=== PATIENT | female | born 1950 | race Caucasian/White ===

== ENCOUNTER 2016-06-05 14:01 | Outpatient (CLI) ==
[2016-06-05 15:19] VITALS: BMI 26.1
== END 2016-06-05 14:02 | disposition home or self-care (01) ==
LOC: DIETCN 14:01
PROVIDERS: ATTEND Family Medicine
DX: E11.9 Type 2 diabetes mellitus without complications (principal)
CPT/HCPCS: 97802

== ENCOUNTER 2017-01-06 14:55 | Emergency (ER) ==
[2017-01-06 15:21] VITALS: TEMP 97.5; BMI 25.7
[2017-01-06 15:47] LABS: BASOPHILS # (AUTO) 0.1 K/uL (0-0.2); BASOPHILS % (AUTO) 0.7 % (0.0-3.0); HEMATOCRIT 40.1 % (37.0-47.0); HEMOGLOBIN 14.3 g/dl (12.0-16.0); IMMATURE GRANULOCYTE % (AUTO) 0.5 % (0.0-5.0); LYMPHOCYTES # (AUTO) 1.9 K/uL (0.60-3.4); LYMPHOCYTES % (AUTO) 21.3 (10.0-50.0); MEAN CORPUSCULAR HEMOGLOBIN 31.1 pg (27.0-31.0); MEAN CORPUSCULAR HGB CONC 35.7 (31.8-35.4); MEAN CORPUSCULAR VOLUME 87.2 fl (81.0-99.0); MONOCYTES # (AUTO) 0.6 K/uL (0.4-2.0); MONOCYTES % (AUTO) 6.6 (0-10); NEUTROPHILS # (AUTO) 6.2 K/ul (2.0-6.9); NEUTROPHILS % (AUTO) 70.9; PLATELET COUNT 198 10^3/uL (140-440); WHITE BLOOD COUNT 8.68 K/ul (4.6-10.2)
--- NOTE | 2017-01-06 15:59 | CT ---
Exam: CT brain without contrast Clinical indication: Dizziness. Comparison: None available. TECHNIQUE: Axial unenhanced CT images from the skull base through the brain were obtained. Coronal and sagital reformats were performed. Findings: There is no evidence of intra or extra-axial hemorrhage. 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 There is also encephalomalacia from a small old left frontal infarct.There is no evidence of mass, acute infarct or midline shift. The ventricles and basilar cisterns are within normal limits. The visualized paranasal sinuses and mastoid air cells are clear. The visualized bony structures are unremarkable. Impression: 1. No acute intracranial abnormality. 2. 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 3. Old left frontal infarct.
[2017-01-06 16:14] LABS: ALANINE AMINOTRANSFERASE 14 U/L (12-78); ALBUMIN 4.2 g/dL (3.4-5.0); ALBUMIN/GLOBULIN RATIO 1.35; ALKALINE PHOSPHATASE 127 U/L (53-141); ANION GAP 18.2; ASPARTATE AMINO TRANSFERASE 9 U/L (15-37); BILIRUBIN,TOTAL 0.37 mg/dL (0.00-1.20); BLOOD UREA NITROGEN 21 mg/dL (7-18); BUN/CREATININE RATIO 15.55; CALCIUM 9.8 mg/dL (8.2-10.2); CARBON DIOXIDE 24 mmol/L (23-31); CHLORIDE 101 mmol/L (98-107); CREATINE KINASE 99 U/L; CREATININE 1.35 mg/dL (0.60-1.30); GLUCOSE 290 mg/dL (82-115); POTASSIUM 4.2 mmol/L (3.5-5.10); SODIUM 139 mmol/L (136-145); TOTAL PROTEIN 7.3 g/dL (5.8-8.1)
--- NOTE | 2017-01-06 16:29 | ED.PDOC ---
General ED Provider: Dr. JOSIAH KAT Chief Complaint: Dizziness Stated Complaint: DIZZINESS Time Seen by Physician: 15:00 (ON ARRIVAL NOT DIZZY) Mode of Arrival: Walk-In Information Source: Patient Exam Limitations: No limitations Primary Care Provider: CRISTIANE FERNANDEZ Nursing and Triage Documentation Reviewed and Agree: Yes Neurological Complaint Exam - Dizziness Complaint/Exam Onset: Gradual Duration: 1` MIN Symptoms Are: Resolved Episodes Lasting: Seconds Initial Severity: Mild Current Severity: None Character: Reports: Dizzy Aggravating: Reports: None Alleviating: Reports: None Associated Signs and Symptoms: Denies: Nausea, Vomiting, Diaphoresis, Tinnitus, Chest pain, Short of air, Palpitations, Unsteady gait, GI blood loss, Visual changes, Decreased oral intake, Change in medication, Change in diet, OTC meds, Loss of balance Cardiac Risk Factors: Reports: Hypertension, Elevated lipids CVA Risk Factors: Reports: Hypertension Related Surgical History: Reports: None JVD Present: No Carotid Bruit Present: No Rectal Heme Positive: No Glascow Coma Scale (see protocol): 15 Nystagmus Present: No Gag Reflex Present: No Meningeal Signs Positive: No Focal Weakness: Present: None Focal Sensory Loss: Present: None Gait: Normal Babinski Sign: Negative Right, Negative Left Differential Diagnoses: Dysrhythmia, Hyperventilation, Hypovolemia, Metabolic abnormalities, Vasovagal reaction Review of Systems - Review Of Systems Constitutional: Reports: No symptoms Eyes: Reports: No symptoms Ears, Nose, Mouth, Throat: Reports: No symptoms Respiratory: Reports: No symptoms Cardiac: Reports: No symptoms GI: Reports: No symptoms : Reports: No symptoms Musculoskeletal: Reports: No symptoms Skin: Reports: No symptoms Neurological: Reports: No symptoms Endocrine: Reports: No symptoms Hematologic/Lymphatic: Reports: No symptoms All Other Systems: Reviewed and Negative Past Medical History - Past Medical History Previously Healthy: Yes Endocrine: Reports: Hypothyroid, Dyslipidemia Cardiovascular: Reports: Hypertension Respiratory: Reports: None Hematological: Reports: None Gastrointestinal: Reports: None Genitourinary: Reports: None Neuro/Psych: Reports: None Musculoskeletal: Reports: None Cancer: Reports: None Last Menstrual Period: unknown - Surgical History General Surgical History: Reports: None - Family History Family History: Reports: None - Social History Smoking Status: Current every day smoker, Heavy tobacco smoker Hx Substance Use: No Alcohol Screening: Occasionally Physical Exam - Physical Exam Appearance: Well-appearing, No pain distress, Well-nourished Eyes: MILADY, EOMI, Conjunctiva clear ENT: Ears normal, Nose normal, Oropharynx normal Respiratory: Airway patent, Breath sounds clear, Breath sounds equal, Respirations nonlabored Cardiovascular: RRR, Pulses normal, No rub, No murmur GI/: Soft, Nontender, No masses, Bowel sounds normal, No Organomegaly Musculoskeletal: Normal strength, ROM intact, No edema, No calf tenderness Skin: Warm, Dry, Normal color Neurological: Sensation intact, Motor intact, Reflexes intact, Cranial nerves intact, Alert, Oriented Psychiatric: Affect appropriate, Mood appropriate Interpretation - Radiology Interpretation Radiology Interpretation By: Radiologist Radiology Results: No acute changes Exam Interpreted: CT Scan Critical Care Note - Critical Care Note Total Time (mins): 0 Course - Course Hematology/Chemistry: 01/06/17 15:40 01/06/17 15:40 Orders, Labs, Meds: Lab Review 01/06/17 15:40 WBC 8.68 RBC 4.60 Hgb 14.3 Hct 40.1 MCV 87.2 MCH 31.1 H MCHC 35.7 H RDW Coeff of Barbie 12.9 Plt Count 198 Immature Gran % (Auto) 0.5 Neut % (Auto) 70.9 Lymph % (Auto) 21.3 [place] % (Auto) 6.6 Eos % (Auto) 0.0 Baso % (Auto) 0.7 Immature Gran # (Auto) 0.0 Neut # 6.2 Lymph # 1.9 [place] # 0.6 Eos # 0.0 Baso # 0.1 Sodium 139 Potassium 4.2 Chloride 101 Carbon Dioxide 24 Anion Gap 18.2 BUN 21 H Creatinine 1.35 H Estimated GFR (MDRD) 39.00 BUN/Creatinine Ratio 15.55 Glucose 290 H Calcium 9.8 Total Bilirubin 0.37 AST 9 L ALT 14 Alkaline Phosphatase 127 Total Creatine Kinase 99 Troponin I < 0.0100 Total Protein 7.3 Albumin 4.2 Globulin 3.1 Albumin/Globulin Ratio 1.35 Orders Category Date Time Status EKG-(ED ONLY) Stat CARDIO 01/06/17 15:28 Completed CBC W/ AUTO DIFF Stat LAB 01/06/17 15:40 Completed COMPREHENSIVE METABOLIC PANEL Stat LAB 01/06/17 15:40 Completed CREATINE KINASE Stat LAB 01/06/17 15:40 Completed TROPONIN I Stat LAB 01/06/17 15:[address] HEAD W/O CONTRAST Stat RADS 01/06/17 15:28 Completed Vital Signs: Temp Pulse Resp BP Pulse Ox 01/06/17 14:56 97.5 F L 75 20 198/75 H 75 L Departure - Departure Time of Disposition: 16:29 (NO LONGER DIZZY IN ED) Disposition: HOME SELF-CARE Discharge Problem: Dizziness Instructions: Vertigo (ED), Dizziness (ED) Condition: Good Pt referred to PMD for follow-up: Yes Additional Instructions: Please call your Family Physician as soon as possible to schedule a follow-up appointment. Allergies/Adverse Reactions: Allergies codeine Adverse Reaction (Verified 01/06/17 15:07) Sulfa (Sulfonamide Antibiotics) Adverse Reaction (Verified 01/06/17 15:07) Home Medications: Ambulatory Orders Albuterol Sulfate [Ventolin Hfa] 2 puff IH Q4-6H PRN 01/06/17 Amlodipine Besylate/Benazepril [Amlodipine-Benazepril 10-20 mg] 1 each PO DAILY 01/06/17 Atorvastatin Calcium [Lipitor] 40 mg PO DAILY 01/06/17 Clopidogrel Bisulfate [Clopidogrel] 75 mg PO DAILY 01/06/17 Glipizide [Glucotrol] 10 mg PO BID 01/06/17 Levothyroxine Sodium [Synthroid] 125 mcg PO DAILY 01/06/17 Losartan/Hydrochlorothiazide [Hyzaar 100-12.5 Tablet] 50 mg PO DAILY 01/06/17 Metformin HCl [Metformin HCl ER] 1,000 mg PO BID 01/06/17 Sitagliptin Phosphate [Januvia] 25 mg PO DAILY 01/06/17 Venlafaxine HCl [Effexor Xr] 150 mg PO DAILY 01/06/17
[2017-01-06 16:34] VITALS: BP 174/92
== END 2017-01-06 16:38 | disposition home or self-care (01) ==
LOC: ED 14:55
DX: R42 Dizziness and giddiness (principal); I10 Essential (primary) hypertension; E78.5 Hyperlipidemia, unspecified; E03.9 Hypothyroidism, unspecified; F17.210 Nicotine dependence, cigarettes, uncomplicated; Z79.899 Other long term (current) drug therapy
CPT/HCPCS: 36415; 80053; 82550; 84484; 85025; 93005; 93010; 99283

== ENCOUNTER 2022-08-06 14:01 | Inpatient (IN) ==
--- NOTE | 2022-08-06 14:04 | ED.PDOC ---
General ED Provider: Dr. VIKY DIAZ MD Chief Complaint: Weakness Stated Complaint: Patient has had watery diarrhea for one week. She has been on flagyl without improvement. Denies fever, chills, nausea, emesis, abdominal pain, hematochezia or urinary tract symptoms. She has also taken immodium with mild improvement of the diarrhea. Time Seen by Provider: 08/06/22 14:03 Primary Care Provider: CRISTIANE FERNANDEZ Nursing and Triage Documentation Reviewed and Agree: Yes Does patient meet sepsis criteria?: No System Inflammatory Response Syndrome: Not Applicable Sepsis Protocol: For patient's 13 years and over: Temp is 96.8 and below OR 101 and greater Pulse >90 BPM Resp >20/minute Acutely Altered Mental Status Are patient's symptoms suggestive of a new infection, such as: -Pneumonia -Skin, Soft Tissue -Endocarditis -UTI -Bone, Joint Infection -Implantable Device -Acute Abdominal Infection -Wound Infection -Meningitis -Blood Stream Catheter Infection -Unknown Review of Systems Review Of Systems Constitutional: Reports Weakness and Loss of appetite Eyes: Reports No symptoms Ears, Nose, Mouth, Throat: Reports No symptoms Respiratory: Reports No symptoms Cardiac: Reports No symptoms GI: Reports Diarrhea, Poor appetite and Poor fluid intake : Reports No symptoms Musculoskeletal: Reports No symptoms Skin: Reports No symptoms Neurological: Reports No symptoms Endocrine: Reports No symptoms Hematologic/Lymphatic: Reports No symptoms All Other Systems: Reviewed and Negative [facility] Female Reproductive History Menstrual Hx Hysterectomy: No Hx Tubal Ligation: No Physical Exam Physical Exam Appearance: Reports Ill-appearing, No pain distress, Thin and Other (Patient is alert, oriented and in NAD. She appears to be weak.) Ill-appearing: Moderate Pain Distress: None Eyes: Reports Not Examined ENT: Reports Nose normal, Oropharynx normal and Dry mucosa Neck: Supple Respiratory: Reports Airway patent, Breath sounds equal and Breath sounds diminished Cardiovascular: Reports RRR, No rub and No murmur GI/: Reports Soft, Nontender, No masses, Bowel sounds normal, No Organomegaly and Other (Mild to moderate distention) Musculoskeletal: Reports No edema Skin: Reports Warm, Dry and Normal color Neurological: Reports Alert and Oriented Psychiatric: Reports Affect appropriate and Mood appropriate Physician Notification Case Discussed Physician Notified: Dr Fernandez Time of Notification: 15:17 Comments: Patient to be admitted for hydration and replacement of her potassium deficit. Critical Care Note Critical Care Note Total Critical Care Time (mins): 0 Course Course Hematology/Chemistry: 08/06/22 14:23 08/06/22 14:15 Orders, Labs, Meds: Lab Review 08/06/22 08/06/22 14:15 14:23 WBC 15.32 H RBC 4.64 Hgb 12.8 Hct 39.6 MCV 85.3 MCH 27.6 MCHC 32.3 RDW Coeff of Barbie 14.1 Plt Count 402 Immature Gran % (Auto) 0.5 Neut % (Auto) 84.6 H Lymph % (Auto) 5.5 L [place] % (Auto) 9.0 Eos % (Auto) 0.1 Baso % (Auto) 0.3 Neut # (Auto) 12.9 H Lymph # (Auto) 0.9 [place] # (Auto) 1.4 Eos # (Auto) 0.0 Baso # (Auto) 0.1 Immature Gran # (Auto) 0.1 Sodium 137.4 Potassium 2.62 L* Chloride 104.6 Carbon Dioxide 24.4 Anion Gap 11.02 BUN 30.7 H Creatinine 2.38 H Estimated GFR (MDRD) 20.00 BUN/Creatinine Ratio 12.89 Glucose 108.0 H Calcium 7.25 L Total Bilirubin 0.29 AST 21.1 ALT 12.0 Alkaline Phosphatase 140.9 Total Protein 5.92 L Albumin 3.14 L Globulin 2.78 Albumin/Globulin Ratio 1.12 Orders Category Date Time Status Saline Lock [ED IV/MEDIPORT/POWERPORT] .ONCE EMERGENCY 08/06/22 14:15 Active CBC W/ AUTO DIFF Stat LAB 08/06/22 14:23 Completed CMP [COMPREHENSIVE METABOLIC PANEL] Stat LAB 08/06/22 14:15 Completed COVID [SARS COV-2 RNA RAPID MONO] Stat LAB 08/06/22 Ordered URINALYSIS C & S IF INDICATED Stat LAB 08/06/22 14:19 Uncollected 0.9 % Sodium Chloride [Saline Flush] MEDS 08/06/22 14:15 Active 1 syr IVF PRN PRN Potassium Chloride [Potassium Chloride 20 Meq/100 ml MEDS 08/06/22 14:51 Active Premix] 40 meq in 200 ml IV ONCE Sodium Chloride 0.9% [Sodium Chloride] 1,000 ml MEDS 08/06/22 14:15 Discontinued IV BOLUS Medications Generic Name Dose Route Start Last Admin Trade Name Freq PRN Reason Stop Dose Admin Potassium Chloride 40 meq in 200 mls @ 50 mls/hr 08/06/22 14:51 08/06/22 15:04 Potassium Chloride 20 Meq/100 Ml Premix IV 08/06/22 18:50 50 mls/hr ONCE ONE Administration Sodium Chloride 1 syr 08/06/22 14:15 08/06/22 14:41 0.9% Sodium Chloride 10 Ml Disp.Syrin IVF 1 syr PRN PRN Administration To flush IV Discontinued Medications Generic Name Dose Route Start Last Admin Trade Name Freq PRN Reason Stop Dose Admin Sodium Chloride 1,000 mls @ 1,000 mls/hr 08/06/22 14:15 08/06/22 14:41 Sodium Chloride IV 08/06/22 15:14 1,000 mls/hr BOLUS STA Administration Vital Signs: Temp Pulse Resp BP Pulse Ox 08/06/22 14:02 97.6 F 64 18 104/67 95 Discharge Plan Discharge Patient Disposition: ADMITTED INPATIENT Discharge Problem: Acute diarrhea, Acute dehydration, Acute hypokalemia, Generalized weakness, Chronic renal insufficiency Did you review [place] [employer] for [employer] controlled substances?: Not Applicable ED Provider: VIKY DIAZ Condition: Fair Physician Progress Note: []
[2022-08-06 14:08] VITALS: TEMP 97.6
[2022-08-06] MEDS ORDERED: SODIUM CHLORIDE 1,000 ML IV STA ×2 (14:15→15:51)
[2022-08-06 14:28] LABS: BASOPHILS # (AUTO) 0.1 K/uL (0-0.2); BASOPHILS % (AUTO) 0.3 % (0.0-3.0); EOSINOPHILS % (AUTO) 0.1 % (0.0-7.0); HEMATOCRIT 39.6 % (37.0-47.0); HEMOGLOBIN 12.8 g/dl (12.0-16.0); IMMATURE GRANULOCYTE # (AUTO) 0.1 (0.0-1.0); IMMATURE GRANULOCYTE % (AUTO) 0.5 % (0.0-5.0); LYMPHOCYTES # (AUTO) 0.9 K/uL (0.60-3.4); LYMPHOCYTES % (AUTO) 5.5 (10.0-50.0); MEAN CORPUSCULAR HEMOGLOBIN 27.6 pg (27.0-31.0); MEAN CORPUSCULAR HGB CONC 32.3 (31.8-35.4); MEAN CORPUSCULAR VOLUME 85.3 fl (81.0-99.0); MONOCYTES # (AUTO) 1.4 K/uL (0.4-2.0); NEUTROPHILS # (AUTO) 12.9 K/ul (2.0-6.9); NEUTROPHILS % (AUTO) 84.6 % (42.2-75.2); PLATELET COUNT 402 10^3/uL (140-440); RDW COEFFICIENT OF VARIATION 14.1 % (11.6-14.8); RED BLOOD COUNT 4.64 10^6/ul (4.20-5.40); WHITE BLOOD COUNT 15.32 K/ul (4.6-10.2)
[2022-08-06 14:44] LABS: ALBUMIN 3.14 g/dL (3.5-5.0); ALKALINE PHOSPHATASE 140.9 U/L (53-141); ASPARTATE AMINO TRANSFERASE 21.1 U/L (14-36); BILIRUBIN,TOTAL 0.29 mg/dL (0.2-1.3); BLOOD UREA NITROGEN 30.7 mg/dL (7-17); CALCIUM 7.25 mg/dL (8.4-10.2); CARBON DIOXIDE 24.4 mmol/L (22-30.0); CHLORIDE 104.6 mmol/L (98-107); CREATININE 2.38 mg/dL (0.60-1.30); SODIUM 137.4 mmol/L (134.5-145); TOTAL PROTEIN 5.92 g/dL (6.3-8.2)
[2022-08-06 14:47] LABS: POTASSIUM 2.62 mmol/L (3.5-5.1)
[2022-08-06] MEDS ORDERED: POTASSIUM CHLORIDE 20 MEQ/100 ML PREMIX 40 MEQ/200 ML BAG IV ONE (14:51)
--- NOTE | 2022-08-06 15:24 | PCM ---
Chief Complaint Chief Complaint: acute diarrhea History of Present Illness History of Present Illness: Patient presents with a one week history of diarrhea and now generalized weakness. She is dehydrated and was found to be hypokalemic. Patient also has worsening chronic renal insufficiency. She has been on flagyl for the past week without improvement of her symptoms. Review of Systems Constitutional: Reports Weakness, Fatigue and Loss of appetite Eyes: Reports No symptoms Ears: Reports No symptoms Nose: Reports No symptoms Throat: Reports No symptoms Mouth: Reports No symptoms Respiratory: Reports No symptoms Cardiovascular: Reports No symptoms Gastrointestinal: Reports Diarrhea Genitourinary: Reports No symptoms Neurological: Reports No symptoms Musculoskeletal: Reports No symptoms Skin: Reports No symptoms Immunology: Reports No symptoms Hematology: Reports No symptoms Endocrine: Reports No symptoms Psychiatric: Reports No symptoms Habits: Denies Tobacco use, Substance use, Alcohol use or Other Allergies Allergies Allergy/AdvReac Type Severity Reaction Status Date / Time codeine AdvReac Verified 08/06/22 14:08 Milk Containing Products AdvReac Verified 08/06/22 14:08 Sulfa (Sulfonamide AdvReac Verified 08/06/22 14:08 Antibiotics) Medications Medications: Medications Generic Name Dose Route Start Last Admin Trade Name Freq PRN Reason Stop Dose Admin Potassium Chloride 40 meq in 200 mls @ 50 mls/hr 08/06/22 14:51 08/06/22 15:04 Potassium Chloride 20 Meq/100 Ml Premix IV 08/06/22 18:50 50 mls/hr ONCE ONE Administration Sodium Chloride 1 syr 08/06/22 14:15 08/06/22 14:41 0.9% Sodium Chloride 10 Ml Disp.Syrin IVF 1 syr PRN PRN Administration To flush IV Body Composition Height: 5 ft 4 in Weight: 57 kg Body Mass Index (BMI): 21.5 Vital Signs Temperature: 97.6 F Pulse Rate: 64 Respiratory Rate: 18 Blood Pressure: 104/67 O2 Sat by Pulse Oximetry: 95 Physical Examination Appearance: Reports Ill-appearing, No pain distress, Thin and Other (Patient appears to be weak. She is alert and in NAD.) Ill-appearing: Moderate Pain Distress: None Eyes: Reports Not Examined ENT: Reports Nose normal, Oropharynx normal and Dry mucosa Neck: Supple Respiratory: Reports Airway patent, Breath sounds clear and Breath sounds equal Cardiovascular: Reports RRR, No rub and No murmur GI/: Reports Soft, Nontender, No masses, Bowel sounds normal, No Organomegaly and Other (Moderate distention.) Musculoskeletal: Reports No edema Skin: Reports Warm, Dry and Normal color Neurological: Reports Alert and Oriented Psychiatric: Reports Affect appropriate and Mood appropriate Lab/Tests/Diagnostic Imaging Lab/Tests/Diagnostic Imaging: Lab Review 08/06/22 08/06/22 14:15 14:23 WBC 15.32 H RBC 4.64 Hgb 12.8 Hct 39.6 MCV 85.3 MCH 27.6 MCHC 32.3 RDW Coeff of Barbie 14.1 Plt Count 402 Immature Gran % (Auto) 0.5 Neut % (Auto) 84.6 H Lymph % (Auto) 5.5 L [place] % (Auto) 9.0 Eos % (Auto) 0.1 Baso % (Auto) 0.3 Neut # (Auto) 12.9 H Lymph # (Auto) 0.9 [place] # (Auto) 1.4 Eos # (Auto) 0.0 Baso # (Auto) 0.1 Immature Gran # (Auto) 0.1 Sodium 137.4 Potassium 2.62 L* Chloride 104.6 Carbon Dioxide 24.4 Anion Gap 11.02 BUN 30.7 H Creatinine 2.38 H Estimated GFR (MDRD) 20.00 BUN/Creatinine Ratio 12.89 Glucose 108.0 H Calcium 7.25 L Total Bilirubin 0.29 AST 21.1 ALT 12.0 Alkaline Phosphatase 140.9 Total Protein 5.92 L Albumin 3.14 L Globulin 2.78 Albumin/Globulin Ratio 1.12 Orders Category Date Time Status Saline Lock [ED IV/MEDIPORT/POWERPORT] .ONCE EMERGENCY 08/06/22 14:15 Active CBC W/ AUTO DIFF Stat LAB 08/06/22 14:23 Completed CMP [COMPREHENSIVE METABOLIC PANEL] Stat LAB 08/06/22 14:15 Completed COVID [SARS COV-2 RNA RAPID MONO] Stat LAB 08/06/22 Ordered URINALYSIS C & S IF INDICATED Stat LAB 08/06/22 14:19 Uncollected 0.9 % Sodium Chloride [Saline Flush] MEDS 08/06/22 14:15 Active 1 syr IVF PRN PRN Potassium Chloride [Potassium Chloride 20 Meq/100 ml MEDS 08/06/22 14:51 Active Premix] 40 meq in 200 ml IV ONCE Sodium Chloride 0.9% [Sodium Chloride] 1,000 ml MEDS 08/06/22 14:15 Discontinued IV BOLUS Medications Generic Name Dose Route Start Last Admin Trade Name Freq PRN Reason Stop Dose Admin Potassium Chloride 40 meq in 200 mls @ 50 mls/hr 08/06/22 14:51 08/06/22 15:04 Potassium Chloride 20 Meq/100 Ml Premix IV 08/06/22 18:50 50 mls/hr ONCE ONE Administration Sodium Chloride 1 syr 08/06/22 14:15 08/06/22 14:41 0.9% Sodium Chloride 10 Ml Disp.Syrin IVF 1 syr PRN PRN Administration To flush IV Discontinued Medications Generic Name Dose Route Start Last Admin Trade Name Freq PRN Reason Stop Dose Admin Sodium Chloride 1,000 mls @ 1,000 mls/hr 08/06/22 14:15 08/06/22 14:41 Sodium Chloride IV 08/06/22 15:14 1,000 mls/hr BOLUS STA Administration Assessment (1) Acute diarrhea: Status: Acute Code(s): R19.7 - Diarrhea, unspecified SNOMED Code(s): 180971242 (2) Acute dehydration: Status: Acute Code(s): E86.0 - Dehydration SNOMED Code(s): 06439636 (3) Acute hypokalemia: Status: Acute Code(s): E87.6 - Hypokalemia SNOMED Code(s): 16682328 (4) Generalized weakness: Status: Acute Code(s): R53.1 - Weakness SNOMED Code(s): 99290980 (5) Chronic renal insufficiency: Status: Acute Code(s): N18.9 - Chronic kidney disease, unspecified SNOMED Code(s): 684666470 Plan Plan: Patient will be admitted for hydration, potassium replacement. Stool studies will be obtained.
[2022-08-06] MEDS ORDERED: VENTOLIN HFA (PER PUFF-WITH SPACER) IH PRN (15:32)
[2022-08-06] MEDS ORDERED: IMODIUM A-D PO PRN (15:33)
[2022-08-06] MEDS ORDERED: IMODIUM PO PRN (15:53)
[2022-08-06 15:56] LABS: SARS COV-2 RNA RAPID NAAT NEGATIVE (NEGATIVE)
[2022-08-06] MEDS ORDERED: SODIUM CHLORIDE 0.9%-KCL 20 MEQ 1,000 ML IV SCH (16:00)
[2022-08-06] MEDS ORDERED: COREG PO SCH (17:00)
[2022-08-06 17:39] VITALS: BMI 22.4
[2022-08-06] MEDS: FLAGYL 500 MG/100 ML 500 MG/100 ML BAG IV SCH ×2 (19:27→23:32)
[2022-08-06] MEDS ORDERED: ZOFRAN 4 MG/2 ML IVP PRN ×2 (20:08→22:40)
[2022-08-06] MEDS ORDERED: BUSPAR PO SCH (21:00)
[2022-08-06] MEDS ORDERED: PROCARDIA XL PO SCH (21:00)
[2022-08-06] MEDS ORDERED: GLUCOTROL PO SCH (21:00)
[2022-08-06] MEDS ORDERED: APRESOLINE PO SCH (21:00)
[2022-08-06] MEDS ORDERED: DEXTROSE 50%-WATER ABBOJECT IVP STA (21:29)
[2022-08-06] MEDS ORDERED: ZOFRAN 4 MG/2 ML IVP STA (22:36)
[2022-08-06] MEDS: MORPHINE 4 MG/ML SYRINGE IVP PRN (22:56)
[2022-08-06] MEDS ORDERED: TYLENOL PO STA (23:47)
[2022-08-07 01:00] LABS: BILIRUBIN,URINE Negative (NEGATIVE); CLARITY,URINE Slightly (CLEAR); COLOR,URINE Yellow (YELLOW); GLUCOSE, URINE (UA) Trace (NEGATIVE); KETONES,URINE Negative (NEGATIVE); LEUKOCYTE ESTERASE ,URINE Negative (NEGATIVE); NITRITE,URINE Negative (NEGATIVE); PROTEIN,URINE 3+ (NEGATIVE); URINE, BLOOD Negative (NEGATIVE); UROBILINOGEN,URINE 0.2 (0.2)
[2022-08-07 01:04] LABS: BACTERIA,URINE 1+ (NOT PRESENT)
[2022-08-07 01:34] LABS: ALANINE AMINOTRANSFERASE 13.9 U/L (0-35); ALBUMIN 3.23 g/dL (3.5-5.0); ALKALINE PHOSPHATASE 157.9 U/L (53-141); ASPARTATE AMINO TRANSFERASE 23.5 U/L (14-36); BASOPHILS % (AUTO) 0.3 % (0.0-3.0); BILIRUBIN,TOTAL 0.35 mg/dL (0.2-1.3); BLOOD UREA NITROGEN 28.6 mg/dL (7-17); CALCIUM 7.21 mg/dL (8.4-10.2); CARBON DIOXIDE 18.6 mmol/L (22-30.0); CHLORIDE 109.3 mmol/L (98-107); CREATININE 2.2 mg/dL (0.60-1.30); EOSINOPHILS % (AUTO) 0.3 % (0.0-7.0); GLUCOSE 155.7 mg/dL (74-106); HEMATOCRIT 39.2 % (37.0-47.0); HEMOGLOBIN 13.2 g/dl (12.0-16.0); IMMATURE GRANULOCYTE # (AUTO) 0.3 (0.0-1.0); IMMATURE GRANULOCYTE % (AUTO) 1.9 % (0.0-5.0); LYMPHOCYTES % (AUTO) 7.2 (10.0-50.0); MEAN CORPUSCULAR HGB CONC 33.7 (31.8-35.4); MEAN CORPUSCULAR VOLUME 83.2 fl (81.0-99.0); MONOCYTES # (AUTO) 0.9 K/uL (0.4-2.0); MONOCYTES % (AUTO) 6.1 (0-10); NEUTROPHILS # (AUTO) 11.8 K/ul (2.0-6.9); NEUTROPHILS % (AUTO) 84.2 % (42.2-75.2); PLATELET COUNT 437 10^3/uL (140-440); POTASSIUM 2.91 mmol/L (3.5-5.1); RDW COEFFICIENT OF VARIATION 14.1 % (11.6-14.8); RED BLOOD COUNT 4.71 10^6/ul (4.20-5.40); SODIUM 137.2 mmol/L (134.5-145); TOTAL PROTEIN 6.12 g/dL (6.3-8.2)
[2022-08-07 01:38] VITALS: BP 128/64
--- NOTE | 2022-08-07 01:58 | CT ---
EXAM: CT SCAN ABDOMEN PELVIS WITHOUT CONTRAST HISTORY: Abdominal pain COMPARISON: None. FINDINGS: Helically acquired axial images obtained through the abdomen pelvis without contrast utili zing 2.5-mm collimation. Sagittal and coronal reconstructions were imaged and reviewed.. The heart s ilhouettes top normal in size without pericardial effusion. There is bibasilar atelectasis. The gal lbladder is distended without gallstones. There is evidence of portal venous gas. . The proximal s tomach distended with fluid. There is thickening involving the proximal body of the stomach.. There is diverticulosis without diverticulitis. The small bowel is diffusely dilated with air and fluid wi thout transition. There is a small bowel pneumatosis and addition to mesenteric venous gas. . Ther e is a Norton catheter in the bladder which is decompressed .. Dense atherosclerotic changes are seen involve abdominal aorta mesenteric and renal vessels. Stents are seen within the bilateral iliacs.. There is a fem-fem graft.. There is right-sided hydronephrosis and hydroureter without obstructing mechanism identified. There is a simple left renal cysts.. Numerous calcifications in the uterus c ompatible with calcified uterine fibroids. .. IMPRESSION: There is evidence of portal venous gas with prominent small bowel which demonstrates pneumatosis.. Th ere is extensive mesenteric venous gas.. Findings compatible with ischemic bowel disease.. Right-sided hydronephrosis and hydroureter without obstructing mechanism identified. Dilated proximal stomach with circumferential narrowing in the upper body which merits further evalua tion.. Diverticulosis without diverticulitis. Dense ASVD. Multiple calcified uterine fibroids. All CT scans are performed using dose optimization techniques as appropriate to the performed exam an d include at least one of the following: Automated exposure control, adjustment of the mA and/or kV according t o size, and the use of iterative reconstruction technique.
[2022-08-07] MEDS ORDERED: ROCEPHIN 1 GM/50 ML D5W 1 GM/50 ML BAG IV ONE (02:38)
[2022-08-07] MEDS: MORPHINE 4 MG/ML SYRINGE IVP PRN (02:53)
--- NOTE | 2022-08-07 03:01 | PCM.DC ---
Final Diagnosis: mesenteric ischemia Physical Exam Appearance: Ill-appearing and Thin Ill-appearing: Moderate Pain Distress: Moderate Eyes: Not Examined ENT: Dry mucosa Neck: Supple Respiratory: Airway patent, Breath sounds clear, Breath sounds equal and Breath sounds diminished Cardiovascular: RRR, No rub and No murmur GI/: No masses, No Organomegaly and Other (Moderate distention and firm. Moderate generalized tenderness with voluntary guarding. No peritoneal signs.) Musculoskeletal: No edema Skin: Warm, Dry and Normal color Neurological: Alert and Oriented Psychiatric: Affect appropriate and Mood appropriate (1) Acute diarrhea: Status: Acute Code(s): R19.7 - Diarrhea, unspecified SNOMED Code(s): 116534984 (2) Acute dehydration: Status: Acute Code(s): E86.0 - Dehydration SNOMED Code(s): 96930719 (3) Acute hypokalemia: Status: Acute Code(s): E87.6 - Hypokalemia SNOMED Code(s): 95703708 (4) Generalized weakness: Status: Acute Code(s): R53.1 - Weakness SNOMED Code(s): 73647926 (5) Chronic renal insufficiency: Status: Acute Code(s): N18.9 - Chronic kidney disease, unspecified SNOMED Code(s): 487973979 (6) Acute mesenteric ischemia: Status: Acute Code(s): K55.059 - Acute (reversible) ischemia of intestine, part and extent unspecified SNOMED Code(s): 60907650 Reason for Hospitalization: diarrhea, dehydration, hypokalemia, generalized weakness Prognosis/Condition at Discharge: Condition at transfer critical Lab/Diagnostics: CT abd/pelvis with mesenteric venous gas, portal venous gas and pneumatosis intestinalis Discharge Disposition: Transfer Hospital Course: Patient developed abdominal pain and distention [address] of the abd/pelvis demonstrated acute mesenteric ischemia. Arrangements were made for emergent transfer of patient. Plan: Transfer to [facility] in [place], [place] in care of Dr Mejias.
[2022-08-07] MEDS ORDERED: SYNTHROID PO SCH (06:30)
[2022-08-07] MEDS ORDERED: ASPIRIN CHEWABLE PO SCH (08:30)
[2022-08-07] MEDS ORDERED: COZAAR PO SCH (09:00)
[2022-08-07] MEDS ORDERED: EFFEXOR XR PO SCH (09:00)
[2022-08-07] MEDS ORDERED: AMLODIPINE BENAZEPRIL PO SCH (09:00)
[2022-08-07] MEDS ORDERED: NON-FORMULARY MEDICATION (Levothyroxine [Synthroid] 125 MCG tablet) PO SCH (09:00)
[2022-08-07] MEDS ORDERED: PLAVIX PO SCH (09:00)
[2022-08-07] MEDS ORDERED: LOSARTAN HYDROCHLOROTHIAZIDE PO SCH (09:00)
[2022-08-07] MEDS ORDERED: JANUVIA PO SCH (09:00)
[2022-08-13] MEDS ORDERED: CATAPRES-TTS 3 TD SCH (09:00)
== END 2022-08-07 03:40 | disposition short-term general hospital (02) | DRG 391 ==
LOC: ED 14:01 → MEDSURG A 16:13
PROVIDERS: ADMIT Surgery; ATTEND Surgery
DX: Z79.899 Other long term (current) drug therapy; E87.6 Hypokalemia; R53.1 Weakness; N18.9 Chronic kidney disease, unspecified; E86.0 Dehydration; Z20.822 Contact with and (suspected) exposure to COVID-19; K55.059 Acute (reversible) ischemia of intestine, part and extent unspecified; R19.7 Diarrhea, unspecified; Z51.81 Encounter for therapeutic drug level monitoring